=== PATIENT | female | born 1935 | race Two or more races ===

== ENCOUNTER 2017-08-16 10:07 | Outpatient (CLI) | payer OTHER | END 2017-08-16 10:26 | disposition home or self-care (01) | LOC: NUCLEAR 10:07 | DX: I73.9 Peripheral vascular disease, unspecified (principal) ==

== ENCOUNTER 2017-08-23 16:25 | Outpatient (CLI) | payer OTHER | END 2017-08-23 17:00 | disposition home or self-care (01) | LOC: NUCLEAR 16:25 | DX: I73.9 Peripheral vascular disease, unspecified (principal); I87.2 Venous insufficiency (chronic) (peripheral) ==

== ENCOUNTER 2017-12-06 09:24 | Outpatient (CLI) | payer OTHER | END 2017-12-06 09:43 | disposition home or self-care (01) | LOC: NUCLEAR 09:24 | DX: I70.293 Other atherosclerosis of native arteries of extremities, bilateral legs (principal); M79.662 Pain in left lower leg; I73.9 Peripheral vascular disease, unspecified ==

== ENCOUNTER 2018-07-19 08:49 | Outpatient (CLI) | payer OTHER | END 2018-07-19 08:56 | disposition home or self-care (01) | LOC: SONOGRAMA 08:49 | DX: R63.4 Abnormal weight loss (principal); Z86.010 Personal history of colon polyps; Z85.038 Personal history of other malignant neoplasm of large intestine; K30 Functional dyspepsia; R10.9 Unspecified abdominal pain ==

== ENCOUNTER → 2018-12-20 | Emergency (ER) | payer OTHER ==
[~2018-12-20] VITALS: Ht 152.4 cm; Wt 56.2 kg
[~2018-12-20] MED LIST: ATENOLOL50 MG; COZAAR100 MG; ZOCOR20 MG
== END | disposition home or self-care (01) ==
LOC: ER 08:44
DX: K52.1 Toxic gastroenteritis and colitis (principal); T36.8X5A Adverse effect of other systemic antibiotics, initial encounter; Y92.89 Other specified places as the place of occurrence of the external cause

== ENCOUNTER 2022-05-23 09:17 | Outpatient (CLI) | payer OTHER | END 2022-05-23 09:21 | disposition home or self-care (01) | LOC: NUCLEAR 09:17 | PROVIDERS: ATTEND Physical Medicine & Rehabilitation | DX: Z13.6 Encounter for screening for cardiovascular disorders (principal); R20.2 Paresthesia of skin; M79.604 Pain in right leg; M79.605 Pain in left leg; Z91.041 Radiographic dye allergy status ==

== ENCOUNTER 2022-05-24 09:06 | Outpatient (CLI) | payer OTHER | END 2022-05-24 09:10 | disposition home or self-care (01) | LOC: NUCLEAR 09:06 | PROVIDERS: ATTEND Physical Medicine & Rehabilitation | DX: Z13.6 Encounter for screening for cardiovascular disorders (principal); R20.2 Paresthesia of skin; M79.604 Pain in right leg; M79.605 Pain in left leg; Z91.041 Radiographic dye allergy status ==